=== PATIENT | male | born 1960 | race Caucasian/White ===

== ENCOUNTER 2019-04-04 10:58 | Emergency (ER) | payer SELFPAY ==
[2019-04-04] MEDS ORDERED: ASPIRIN 81 MG TABLET, CHEWABLE PO ONE (11:08)
[2019-04-04 11:15] LABS: ABSOLUTE BASOPHILS # (AUTO) 0.1 10^3/uL (0.0-0.2); ABSOLUTE EOSINOPHILS # (AUTO) 0.2 10^3/uL (0.0-0.6); ABSOLUTE LYMPHOCYTES (AUTO) 2.2 10^3/uL (0.5-4.7); ABSOLUTE NEUT (AUTO) 6.7 10^3/uL (1.7-8.2); BASOPHILS % (AUTO) 1.2 % (0-2); HEMOGLOBIN 19.1 g/dL (13.5-17.0); LYMPHOCYTES % (AUTO) 21.9 % (13-45); MEAN CORPUSCULAR HEMOGLOBIN 32.7 pg (27.0-33.4); MEAN CORPUSCULAR HGB CONC 34.6 g/dL (32.0-36.0); MEAN CORPUSCULAR VOLUME 94 fl (80-97); PLATELET COUNT 290 10^3/uL (150-450); RED BLOOD COUNT 5.84 10^6/uL (4.35-5.55); RED CELL DISTRIBUTION WIDTH 13.8 % (11.5-14.0); SEGMENTED NEUTROPHILS % (AUTO) 64.9 % (42-78); TOTAL CELLS COUNTED % (AUTO) 100 %; WHITE BLOOD COUNT 10.3 10^3/uL (4.0-10.5)
[2019-04-04 11:16] LABS: HEMATOCRIT 55.2 % (37.9-51.0)
--- NOTE | 2019-04-04 11:19 | ER Document Report ---
ED General - General Chief Complaint: Headache Stated Complaint: WEAKNESS Time Seen by Provider: 04/04/19 11:08 Notes: 59-year-old male with no known past medical history presents to the emergency department via EMS with chief complaint of stabbing neck pain, headache, nausea, vomiting, extreme diaphoresis. Patient said that symptoms started abruptly this morning and he gets intermittent stabbing sharp pain to his bilateral shoulders and neck. Patient is a 2 pack/day smoker and a daily drinker who states he already drank 2 beers this morning. Patient says he was having similar symptoms in the last 2 days but they were not as severe. Denies any recent illness. Denies vision changes, denies any chest pain. No other complaints. Past Medical History - Social History Smoking Status: Current Every Day Smoker - 2 PPD Frequency of alcohol use: Heavy Drug Abuse: None Family History: None Review of Systems - Review of Systems Constitutional: See HPI EENT: No symptoms reported Cardiovascular: See HPI Respiratory: See HPI Gastrointestinal: See HPI Genitourinary: No symptoms reported Male Genitourinary: No symptoms reported Musculoskeletal: No symptoms reported Skin: No symptoms reported Hematologic/Lymphatic: No symptoms reported Neurological/Psychological: No symptoms reported Physical Exam - Vital signs Vitals: Resp 22 H 04/04/19 11:30 - Notes Notes: PHYSICAL EXAMINATION: Reviewed vital signs and charting by RN GENERAL: Alert, acute distress and profusely diaphoretic HEAD: Normocephalic, atraumatic. EYES: Pupils equal and round. Extraocular movements intact. ENT: Oral mucosa moist, tongue midline. NECK: Full range of motion. Trachea midline. LUNGS: Clear to auscultation bilaterally, no wheezes, rales, or rhonchi. No respiratory distress. HEART: Regular rate and rhythm. No murmur ABDOMEN: soft, non-tender. No distention. Bowel sounds present EXTREMITIES: Moves all 4 extremities spontaneously. No edema, No cyanosis. PSYCH: Normal affect, normal mood. SKIN: Warm, dry, normal turgor. No rashes or lesions noted. Course - Re-evaluation Re-evalutation: 04/04/19 11:18 Patient arrived in acute distress and profusely diaphoretic. At the bedside nurses were already obtaining EKG. EKG performed which did not show any evidence of STEMI's, sinus rhythm with a rate of 64. QT interval 450. Work-up has been initiated and CTA neck and chest has been ordered. I requested immediate CTA to be completed. 04/04/19 13:03 CTA completed and there was no evidence of dissection or any type of aneurysm and bilateral carotid arteries or the aorta. Initial troponin negative. Patient was started on a Cardene drip out of an abundance of caution to maintain a systolic blood pressure of 160-180. Patient did remain within those limits while off the Cardene at CT. CT head was obtained, read pending. Dr. Banks, attending physician, fully assessed the patient as well. Unclear as thus far patient has had a negative work-up. This could potentially be alcohol related. Serum alcohol level negative and he states he is a heavy drinker, drinking 8-12 beers per day. No clear evidence of acute alcohol withdrawal, though. Plan is to get the repeat troponin. 04/04/19 15:34 Repeat troponin was negative. Patient had a completely negative work-up. At this time patient is sleeping comfortably in the bed. All lab work within normal limits. Vital signs have been stable throughout and most recent blood pressure is 139/70. 04/04/19 18:39 Patient seems to be malingering a bit as every time he moves he complains of a "govea in the head" and winces and lays back down. It is unclear what is going on and I am unsure if this patient is indeed malingering at all but he has a completely negative, full work-up. I cannot justify admitting the patient as he does not meet any criteria but will give him strict return precautions. He is now stable for discharge. 04/04/19 19:21 - Vital Signs Vital signs: Temp Pulse Resp BP Pulse Ox 71 15 165/86 H 95 04/04/19 17:25 04/04/19 12:46 04/04/19 19:01 04/04/19 19:01 - Laboratory Result Diagrams: 04/04/19 11:05 04/04/19 11:05 Laboratory results interpreted by me: 04/04/19 04/04/19 04/04/19 11:05 11:05 13:25 RBC 5.84 H Hgb 19.1 H Hct 55.2 H Glucose 144 H Urine Glucose (UA) 50 H Urine Ketones TRACE H Discharge - Discharge Clinical Impression: Diaphoresis, Nausea Hypertension Qualifiers: Hypertension type: unspecified Qualified Code(s): I10 - Essential (primary) hypertension Condition: Good Disposition: HOME, SELF-CARE Additional Instructions: You were seen in the emergency department this afternoon for headache, nausea, vomiting, and extreme sweating. You had a completely negative work-up. This is all very reassuring. We are not sure why you are having the symptoms. It could be related to musculoskeletal pain or it could be related to your drinking. Nonetheless it was a reassuring work-up. It is important that you follow-up with your primary doctor on Sunday morning. If you develop any chest pain, develop nausea/vomiting/profuse sweating with chest pain, you pass out, you become extremely lightheaded, you have numbness/tingling or paralysis in any of your extremities, please immediately return to the emergency department.
[2019-04-04 11:34] LABS: ALANINE AMINOTRANSFERASE 24 U/L (21-72); ALBUMIN 4.8 g/dL (3.5-5.0); ALKALINE PHOSPHATASE 82 U/L (38-126); ANION GAP 12 (5-19); ASPARTATE AMINO TRANSFERASE 30 U/L (17-59); BILIRUBIN,DIRECT 0.3 mg/dL (0.0-0.4); BILIRUBIN,TOTAL 0.5 mg/dL (0.2-1.3); BLOOD UREA NITROGEN 9 mg/dL (7-20); CALCIUM 9.2 mg/dL (8.4-10.2); CARBON DIOXIDE 24 mmol/L (22-30); CHLORIDE 105 mmol/L (98-107); GLUCOSE 144 mg/dL (75-110); POTASSIUM 4.2 mmol/L (3.6-5.0); SODIUM 141.2 mmol/L (137-145); TOTAL PROTEIN 7.9 g/dL (6.3-8.2)
[2019-04-04] MEDS ORDERED: NICARDIPINE HCL RTU, ISO-OS 20 MG/200 ML RTUINJ IV PRN (11:38)
[2019-04-04] MEDS ORDERED: PROMETHAZINE HCL INJ 25 MG/1 ML VIAL IV ONE (11:42)
[2019-04-04] MEDS ORDERED: ONDANSETRON HCL INJ/PF 4 MG/2 ML SDV IV ONE (11:42)
[2019-04-04] MEDS ORDERED: PROMETHAZINE HCL INJ 25 MG/1 ML VIAL ONE (11:44)
--- NOTE | 2019-04-04 11:55 | RADIOLOGY REPORT (SQ) ---
EXAM DESCRIPTION: CHEST SINGLE VIEW COMPLETED DATE/TIME: 04/04/2019 11:44 am REASON FOR STUDY: CP COMPARISON: None. EXAM PARAMETERS: NUMBER OF VIEWS: One view. TECHNIQUE: Single frontal radiographic view of the chest acquired. RADIATION DOSE: NA LIMITATIONS: None. FINDINGS: LUNGS AND PLEURA: No opacities, masses or pneumothorax. No pleural effusion. MEDIASTINUM AND HILAR STRUCTURES: No masses. Contour normal. HEART AND VASCULAR STRUCTURES: Heart normal in size. Normal vasculature. BONES: No acute findings. HARDWARE: None in the chest. OTHER: No other significant finding. IMPRESSION: No acute abnormality of the lungs in AP projection. TECHNICAL DOCUMENTATION: JOB ID: [id number] [employer]- All Rights Reserved Reading location - IP/workstation name: [email or web address]
--- NOTE | 2019-04-04 11:58 | RADIOLOGY REPORT (SQ) ---
EXAM DESCRIPTION: CTA CHEST; CTA NECK COMPLETED DATE/TIME: 04/04/2019 11:31 am REASON FOR STUDY: r/o dissection; neck pain COMPARISON: None. TECHNIQUE: CT angio scan of the chest performed using helical scanning technique with dynamic intrav enous contrast injection. Images reviewed with lung, soft tissue and bone windows. Reconstructed co malu and sagittal MPR images reviewed. Additional 3 dimensional post-processing performed to develop Maximal Intensity Projection images (AL P). All images stored on PACS. CT angio scan of the neck performed using helical scanning technique with dynamic intravenous contras t injection. Images reviewed with lung, soft tissue and bone windows. Reconstructed coronal and sag ittal MPR images reviewed. Additional 3 dimensional post-processing performed to develop Maximal Intensity Projection images (AL P). All images stored on PACS All CT scanners at this facility use dose modulation, iterative reconstruction, and/or weight based d osing when appropriate to reduce radiation dose to as low as reasonably achievable (ALARA). [facility]: Dose Right [facility]: CareDose [facility]: Dose Right [facility]: Teradose 4D [facility]: [employer] CONTRAST TYPE AND DOSE: contrast/concentration: Isovue 350.00 mg/ml; Total Contrast Delivered: 70.0 ml; Total Saline Delivered: 75.0 ml Contrast bolus optimized for the pulmonary arteries and thoracic aorta. RENAL FUNCTION: Deferred by the emergency room physician due to acuity of the case RADIATION DOSE: CT Rad equipment meets quality standard of care and radiation dose reduction techniq ues were employed. CTDIvol: 26.4 - 29.8 mGy. DLP: 1726 mGy-cm. . LIMITATIONS: None. FINDINGS: CT angio chest: LUNGS AND PLEURA: No masses, infiltrates, or pneumothorax. No pleural effusions or pleural calcifica tions. AORTA AND GREAT VESSELS: No aneurysm. Contrast bolus not optimized for the aorta. HEART: No pericardial effusion. Minimal left coronary artery calcifications. PULMONARY ARTERIES: No emboli visualized in the main pulmonary arteries or the segmental branches. HILAR AND MEDIASTINAL STRUCTURES: No identified masses or abnormal nodes. HARDWARE: None in the chest. UPPER ABDOMEN: Fatty liver. 12 mm hepatic cyst left lobe liver. THYROID AND OTHER SOFT TISSUES: No masses. No adenopathy. BONES: No acute or significant finding. 3D MIPS: Confirm above findings. OTHER: No other significant finding. CT angio neck: Aortic arch and proximal great vessels: No thoracic aortic dissection. No significant atherosclerot ic change at the origins of the great vessels. RIGHT COMMON CAROTID ARTERY: Widely patent. RIGHT CAROTID BIFURCATION: Minimal calcific plaque at the right carotid bifurcation without flow sig nificant stenosis of the proximal right ICA. RIGHT INTERNAL CAROTID ARTERY:No cervical right internal carotid artery irregularity worrisome for di ssection. LEFT COMMON CAROTID ARTERY: Widely patent LEFT CAROTID BIFURCATION: Mild mixed calcific and noncalcific plaque at the left carotid bifurcation without flow significant stenosis. LEFT INTERNAL CAROTID ARTERY: No cervical left internal carotid artery irregularity worrisome for di ssection. CERVICAL VERTEBRAL ARTERIES: Right vertebral artery is dominant, widely patent. Left vertebral artery is non dominant, proximal left vertebral artery is not visualized. Flow in a s mall caliber left vertebral artery is identified at the C5-6 level extending cranially, likely relate d to collateral flow. LIMITED VIEW [place] OF [place]: No [place] of [place] stenosis, vascular malformation, or aneurysm. NECK SOFT TISSUES, BRAIN PARENCHYMA IN TANNER FIELD OF VIEW: No neck masses or adenopathy. Orbits unre markable. Minimal anterior right ethmoid air cell inflammatory change. Mastoids and middle ear cavi ties are clear. Orbits are unremarkable. Report called to NORMA Logan in the emergency room, 1130 hours 04/04/2019. IMPRESSION: NORMAL CTA OF THE CHEST. NORMAL CT ANGIO OF THE NECK. COMMENT: Quality ID # 436: Final reports with documentation of one or more dose reduction techniques (e.g., Automated exposure control, adjustment of the mA and/or kV according to patient size, use of iterative reconstruction technique) TECHNICAL DOCUMENTATION: JOB ID: [id number] [employer]- All Rights Reserved Reading location - IP/workstation name: [email or web address]-
--- NOTE | 2019-04-04 11:58 | RADIOLOGY REPORT (SQ) ---
EXAM DESCRIPTION: CTA CHEST; CTA NECK COMPLETED DATE/TIME: 04/04/2019 11:31 am REASON FOR STUDY: r/o dissection; neck pain COMPARISON: None. TECHNIQUE: CT angio scan of the chest performed using helical scanning technique with dynamic intrav enous contrast injection. Images reviewed with lung, soft tissue and bone windows. Reconstructed co malu and sagittal MPR images reviewed. Additional 3 dimensional post-processing performed to develop Maximal Intensity Projection images (SC P). All images stored on PACS. CT angio scan of the neck performed using helical scanning technique with dynamic intravenous contras t injection. Images reviewed with lung, soft tissue and bone windows. Reconstructed coronal and sag ittal MPR images reviewed. Additional 3 dimensional post-processing performed to develop Maximal Intensity Projection images (SC P). All images stored on PACS All CT scanners at this facility use dose modulation, iterative reconstruction, and/or weight based d osing when appropriate to reduce radiation dose to as low as reasonably achievable (ALARA). [facility]: Dose Right [facility]: CareDose [facility]: Dose Right [facility]: Teradose 4D [facility]: [employer] CONTRAST TYPE AND DOSE: contrast/concentration: Isovue 350.00 mg/ml; Total Contrast Delivered: 70.0 ml; Total Saline Delivered: 75.0 ml Contrast bolus optimized for the pulmonary arteries and thoracic aorta. RENAL FUNCTION: Deferred by the emergency room physician due to acuity of the case RADIATION DOSE: CT Rad equipment meets quality standard of care and radiation dose reduction techniq ues were employed. CTDIvol: 26.4 - 29.8 mGy. DLP: 1726 mGy-cm. . LIMITATIONS: None. FINDINGS: CT angio chest: LUNGS AND PLEURA: No masses, infiltrates, or pneumothorax. No pleural effusions or pleural calcifica tions. AORTA AND GREAT VESSELS: No aneurysm. Contrast bolus not optimized for the aorta. HEART: No pericardial effusion. Minimal left coronary artery calcifications. PULMONARY ARTERIES: No emboli visualized in the main pulmonary arteries or the segmental branches. HILAR AND MEDIASTINAL STRUCTURES: No identified masses or abnormal nodes. HARDWARE: None in the chest. UPPER ABDOMEN: Fatty liver. 12 mm hepatic cyst left lobe liver. THYROID AND OTHER SOFT TISSUES: No masses. No adenopathy. BONES: No acute or significant finding. 3D MIPS: Confirm above findings. OTHER: No other significant finding. CT angio neck: Aortic arch and proximal great vessels: No thoracic aortic dissection. No significant atherosclerot ic change at the origins of the great vessels. RIGHT COMMON CAROTID ARTERY: Widely patent. RIGHT CAROTID BIFURCATION: Minimal calcific plaque at the right carotid bifurcation without flow sig nificant stenosis of the proximal right ICA. RIGHT INTERNAL CAROTID ARTERY:No cervical right internal carotid artery irregularity worrisome for di ssection. LEFT COMMON CAROTID ARTERY: Widely patent LEFT CAROTID BIFURCATION: Mild mixed calcific and noncalcific plaque at the left carotid bifurcation without flow significant stenosis. LEFT INTERNAL CAROTID ARTERY: No cervical left internal carotid artery irregularity worrisome for di ssection. CERVICAL VERTEBRAL ARTERIES: Right vertebral artery is dominant, widely patent. Left vertebral artery is non dominant, proximal left vertebral artery is not visualized. Flow in a s mall caliber left vertebral artery is identified at the C5-6 level extending cranially, likely relate d to collateral flow. LIMITED VIEW [place] OF [place]: No [place] of [place] stenosis, vascular malformation, or aneurysm. NECK SOFT TISSUES, BRAIN PARENCHYMA IN TANNER FIELD OF VIEW: No neck masses or adenopathy. Orbits unre markable. Minimal anterior right ethmoid air cell inflammatory change. Mastoids and middle ear cavi ties are clear. Orbits are unremarkable. Report called to NORMA Logan in the emergency room, 1130 hours 04/04/2019. IMPRESSION: NORMAL CTA OF THE CHEST. NORMAL CT ANGIO OF THE NECK. COMMENT: Quality ID # [id number]: Final reports with documentation of one or more dose reduction techniques (e.g., Automated exposure control, adjustment of the mA and/or kV according to patient size, use of iterative reconstruction technique) TECHNICAL DOCUMENTATION: JOB ID: [id number] [employer]- All Rights Reserved Reading location - IP/workstation name: [email or web address]-
--- NOTE | 2019-04-04 12:51 | RADIOLOGY REPORT (SQ) ---
EXAM DESCRIPTION: CT HEAD WITHOUT COMPLETED DATE/TIME: 04/04/2019 12:38 pm REASON FOR STUDY: N/V ETOH abuse COMPARISON: None. TECHNIQUE: Axial images acquired through the brain without intravenous contrast. Images reviewed wi th bone, brain and subdural windows. Images stored on PACS. All CT scanners at this facility use dose modulation, iterative reconstruction, and/or weight based d osing when appropriate to reduce radiation dose to as low as reasonably achievable (ALARA). [facility]: Dose Right [facility]: CareDose [facility]: Dose Right [facility]: Teradose 4D [facility]: [employer] RADIATION DOSE: CT Rad equipment meets quality standard of care and radiation dose reduction techniq ues were employed. CTDIvol: 53.2 mGy. DLP: 1044 mGy-cm. mGy. LIMITATIONS: None. FINDINGS: VENTRICLES: Normal size and contour. CEREBRUM: No masses. No hemorrhage. No midline shift. No evidence for acute infarction. Normal gra y/white matter differentiation. No areas of low density in the white matter. CEREBELLUM: No masses. No hemorrhage. No alteration of density. No evidence for acute infarction. EXTRAAXIAL SPACES: No fluid collections. No masses. ORBITS AND GLOBE: No intra- or extraconal masses. Normal contour of globe without masses. CALVARIUM: No fracture. PARANASAL SINUSES: No fluid level. Maxillary mucosal thickening. SOFT TISSUES: No mass or hematoma. OTHER: No other significant finding. IMPRESSION: No acute intracranial findings. EVIDENCE OF ACUTE STROKE: NO. COMMENT: Quality ID # [id number]: Final reports with documentation of one or more dose reduction techniques (e.g., Automated exposure control, adjustment of the mA and/or kV according to patient size, use of iterative reconstruction technique) TECHNICAL DOCUMENTATION: JOB ID: [id number] [id number] 2010 [employer]- All Rights Reserved Reading location - IP/workstation name: [email or web address]
[2019-04-04 13:47] LABS: APPEARANCE,URINE CLEAR; BILIRUBIN,URINE NEGATIVE (NEGATIVE); COLOR,URINE YELLOW; GLUCOSE, URINE 50 mg/dL (NEGATIVE); KETONES,URINE TRACE mg/dL (NEGATIVE); LEUKOCYTE ESTERASE,URINE NEGATIVE (NEGATIVE); NITRITE,URINE NEGATIVE (NEGATIVE); PROTEIN,URINE NEGATIVE (NEGATIVE); URINE SPECIFIC GRAVITY 1.049; UROBILINOGEN,URINE NEGATIVE mg/dL (<2.0)
--- NOTE | 2019-04-04 14:02 | EKG REPORT ---
SEVERITY:- BORDERLINE ECG - SINUS RHYTHM PROBABLE LEFT ATRIAL ABNORMALITY BORDERLINE PROLONGED QT INTERVAL : Confirmed by: Noelle Erazo 04-Apr-2019 14:00:59
--- NOTE | 2019-04-04 14:02 | EKG REPORT ---
SEVERITY:- BORDERLINE ECG - SINUS RHYTHM PROBABLE LEFT ATRIAL ABNORMALITY BORDERLINE PROLONGED QT INTERVAL : Confirmed by: Noelle Erazo 04-Apr-2019 14:01:04
--- NOTE | 2019-04-04 14:02 | EKG REPORT ---
SEVERITY:- BORDERLINE ECG - SINUS RHYTHM PROBABLE LEFT ATRIAL ABNORMALITY : Confirmed by: Noelle Erazo 04-Apr-2019 14:01:11
[2019-04-04 14:15] LABS: URINE AMPHETAMINES SCREEN NEGATIVE; URINE BARBITURATES SCREEN NEGATIVE; URINE BENZODIAZEPINES SCREEN NEGATIVE; URINE COCAINE SCREEN NEGATIVE; URINE MARIJUANA (THC) SCREEN NEGATIVE; URINE METHADONE SCREEN NEGATIVE; URINE PHENCYCLIDINE SCREEN NEGATIVE
--- NOTE | 2019-04-04 15:15 | ER Document Report ---
Doctor's Note Notes: 04/04/19 15:13 Patient was seen in conjunction with the physician executive assistant to general counsel. Please refer to his note correlate with mine. In short this 59-year-old gentleman presented to the emergency department for evaluation of pain in his right shoulder, with radiation up into his neck. He pointed actually to his upper chest. He d escribes it as sharp and stabbing. On arrival he was diaphoretic, very nauseated. He was very pale. On further questioning the patient does admit to alcohol dependence. He states he drinks beer daily. He stated he was sitting down to drink a beer when his symptoms started today. He does not see a doctor regularly. Is unaware of any medical problems. Vital signs revealed a hypertensive 59-year-old male who appears older than his stated age in a moderate amount of distress. He is diaphoretic, pale. Heart is regular rate and rhythm, lungs are clear to all station bilaterally. Patient's pain is somewhat reproducible in the right trapezius and shoulder. Peripheral pulses are equal. Patient was evaluated here in the emergency department. He was placed on a desk monitor. He was moderately hypertensive upon arrival. He was sent over for CT and could not tolerate it secondary to nausea and vomiting. His emesis was nonbloody nonbilious. We started him on a Cardene drip to in itially control his blood pressure. Patient had extensive imaging. His EKG failed to reveal STEMI, including a posterior a EKG that I reviewed. Patient's vital signs normalized. My strong suspicion is that this patient is suffering from alcohol withdrawal. He is medicated with Ativan. His current blood pressure is 152/65, heart rate of 63, he is 96% on room air. At this point, pending second troponin, I do believe that discharge is appropriate. [place] will be performed. Patient is to follow-up with primary care, return to the ED with worsening.
[2019-04-04] MEDS ORDERED: ONDANSETRON ODT 4 MG TAB (6 TAB/ER DISP) PO PRN (15:37)
[2019-04-04] MEDS ORDERED: MECLIZINE HCL 12.5 MG TABLET PO ONE (15:56)
[2019-04-04] MEDS ORDERED: NORMAL SALINE 1000 ML 1,000 ML IV ONE (17:26)
[2019-04-04 19:04] VITALS: BP 165/86
== END 2019-04-04 19:23 | disposition home or self-care (01) ==
LOC: ER 10:58
DX: R61 Generalized hyperhidrosis (principal); R53.1 Weakness; R11.2 Nausea with vomiting, unspecified; M54.2 Cervicalgia; R51 Headache; M25.511 Pain in right shoulder; M25.512 Pain in left shoulder; F17.200 Nicotine dependence, unspecified, uncomplicated
CPT/HCPCS: 93005; 99284; 96361; 96375; 96365; 36415; 80307 ×2; 85025; 80053; 81001; 84484; 71045; 70450; 70498; 71275; 93010; J3490 ×2; J2550; J2405; J7030